=== PATIENT | male | born 2000 | race Caucasian/White ===

== ENCOUNTER 2020-06-25 23:14 | Emergency (ER) | payer MEDICAID ==
[~2020-06-25] VITALS: Ht 180.3 cm; Wt 72.0 kg
[2020-06-25 23:25] VITALS: BP 111/72
[2020-06-26 01:50] LABS: CLARITY URINE CLEAR (CLEAR); COLOR URINE YELLOW (YELLOW); KETONES URINE NEGATIVE (NEGATIVE); LEUKOCYTE ESTERASE URINE NEGATIVE (NEGATIVE); NITRITE URINE NEGATIVE (NEGATIVE); OCCULT BLOOD URINE NEGATIVE (NEGATIVE); PROTEIN URINE NEGATIVE (NEGATIVE); SPECIFIC GRAVITY URINE 1.014 (1.005-1.030)
== END 2020-06-26 02:56 | disposition home or self-care (01) ==
LOC: ER 23:14
DX: K52.9 Noninfective gastroenteritis and colitis, unspecified (principal)
CPT/HCPCS: 81003; 93005; 99284

== ENCOUNTER 2020-08-25 20:11 | Emergency (ER) | payer MEDICAID ==
[~2020-08-25] VITALS: Ht 177.8 cm; Wt 71.0 kg
[2020-08-25 20:52] VITALS: BP 131/74
== END 2020-08-25 20:52 | disposition home or self-care (01) ==
LOC: ER 20:11
DX: B00.1 Herpesviral vesicular dermatitis (principal)
CPT/HCPCS: 99282

== ENCOUNTER 2023-06-29 13:32 | Emergency (ER) | payer MEDICAID ==
[2023-06-29] MEDS ORDERED: DIPHENHYDRAMINE 50MG/ML VIAL IV NR (13:45)
[2023-06-29] MEDS ORDERED: FAMOTIDINE 20MG/2ML VIAL IV NR (13:45)
[2023-06-29] MEDS ORDERED: LACTATED RINGERS 1,000 ML IV NR (13:45)
[2023-06-29] MEDS ORDERED: EPINEPHRINE 1:1000 1 MG/ML AMP IM NR (13:45)
[2023-06-29 13:49] VITALS: O2SAT 97
[2023-06-29] MEDS ORDERED: DEXAMETHASONE 10 MG/ML VIAL IV NR (14:00)
[2023-06-29 16:13] VITALS: BP 99/57; PULSE 82; RESP 20; TEMP 98.9
== END 2023-06-29 17:39 | disposition home or self-care (01) ==
LOC: ER 13:32
DX: T78.2XXA Anaphylactic shock, unspecified, initial encounter (principal); X58.XXXA Exposure to other specified factors, initial encounter; Y93.89 Activity, other specified; Y92.89 Other specified places as the place of occurrence of the external cause; Y99.8 Other external cause status
CPT/HCPCS: 96372; 96374; 96375; 99291; J1100; J1200; J3490 ×2; Z7610